=== PATIENT | male | born 1955 | race Caucasian/White ===

== ENCOUNTER → 2023-07-06 | Outpatient (CLI) | payer OTHER, SELFPAY ==
--- NOTE | 2023-07-06 12:49 | ECHOD_ITS ---
Reason For Study: Non Isch CMP Procedure This was a 2D Doppler, Color Flow transthoracic echocardiogram. Exam performed in department. Left Ventricle Normal LV size. Left ventricular systolic function is lower limits of normal. Stage 1 diastolic dysfunction. There is borderline global hypokinesis of the left ventricle. Right Ventricle Normal RV size. Normal systolic function. Atria Normal left atrium. Normal right atrium. Mitral Valve Normal mitral valve. Tricuspid Valve Normal tricuspid valve. Aortic Valve Normal aortic valve. Trisinus/trileaflet aortic valve. Pulmonic Valve Normal pulmonic valve. Great Vessels Mildly dilated aortic root. The pulmonary artery is normal size. Inferior vena cava collapse with respiration. Pericardium/Pleural No pericardial effusion. MMode/2D Measurements & Calculations LVIDd: 5.5 cm IVSd: 1.1 cm Ao root diam: 3.9 cm LVIDs: 4.4 cm LVPWd: 0.99 cm LA dimension: 3.4 cm RVDd: 3.6 cm FS: 20.2 % LAV(MOD-bp): 51.2 ml LVAd ap4: 41.3 cm2 SV(MOD-sp4): 76.0 ml LAV(MOD-bp) Indexed: 27.2 ml/m2 LVLd ap4: 8.9 cm LAV(MOD-sp2): 56.1 ml EDV(MOD-sp4): 155.9 ml LAV(MOD-sp4): 43.4 ml EDV(sp4-el): 161.9 ml LVAs ap4: 26.4 cm2 LVLs ap4: 7.4 cm ESV(MOD-sp4): 79.8 ml ESV(sp4-el): 79.4 ml EF(MOD-sp4): 48.8 % EF(sp4-el): 51.0 % SV(sp4-el): 82.5 ml LA A4 area: 18.2 cm2 RA A4 area: 18.4 cm2 TAPSE: 2.0 cm Time Measurements MV dec time: 0.17 sec Doppler Measurements & Calculations MV E max lópez: 38.1 cm/sec Lat Peak E' López: 14.3 cm/sec Med Peak E' López: 8.0 cm/sec MV A max lópez: 83.0 cm/sec E/E' lat: 2.7 E/E' med: 4.8 MV E/A: 0.46 MV V2 max: 80.0 cm/sec MV P1/2t max lópez: 45.6 cm/sec Ao V2 max: 168.2 cm/sec MV max P.6 mmHg MV P1/2t: 66.3 msec Ao max P.3 mmHg MV V2 mean: 47.3 cm/sec MV dec slope: 201.6 cm/sec2 Ao V2 mean: 121.4 cm/sec MV mean P.1 mmHg Ao mean P.7 mmHg MV V2 VTI: 16.5 cm MVA(P1/2t): 3.3 cm2 Ao V2 VTI: 29.3 cm AV (velocity ratio): 0.59 LV V1 max: 92.6 cm/sec PA V2 max: 94.4 cm/sec LV V1 max P.4 mmHg LV V1 mean P.1 mmHg LV V1 mean: 69.6 cm/sec LV V1 VTI: 17.3 cm ECHO/Echo Complete Interpretation Summary Normal LV size. Left ventricular systolic function is lower limits of normal. There is borderline global hypokinesis of the left ventricle. Stage 1 diastolic dysfunction. Mildly dilated aortic root. Ordering Physician: Kamran Caputo Referring Physician: Kamran Caputo Performed By: Catracho Arevalo RCS
--- OUTSIDE RECORDS SUMMARY | 2023-07-06 13:15 | XMS RPT_ITS | CCD ---
Author Name Unknown Address [address] [place] [address] Organization [facility] Care Team Providers [employer] Name Role Phone SARY FERRO MD Referring Unavailable SARY FERRO MD Consulting Unavailable RENNY CARRENO DO Admitting Unavailable RENNY CARRENO DO Primary Care Unavailable RENNY CARRENO DO Attending Unavailable PROVIDER, UNKNOWN Consulting Unavailable PROVIDER, UNKNOWN Consulting Unavailable PROVIDER, UNKNOWN Consulting Unavailable SARY FERRO MD Consulting Unavailable BENEHOWARD TONNY Admitting Unavailable BENETONNY LAWRENCE Primary Care Unavailable TONNY JOHNSTON Attending Unavailable PROVIDER, UNKNOWN Consulting Unavailable PROVIDER, UNKNOWN Consulting Unavailable PROVIDER, UNKNOWN Consulting Unavailable SARY FERRO MD Consulting Unavailable DHARMESH VARGAS MD Admitting Unavailable DHARMESH VARGAS MD Primary Care Unavailable DHARMESH VARGAS MD Attending Unavailable PROVIDER, UNKNOWN Consulting Unavailable PROVIDER, UNKNOWN Consulting Unavailable PROVIDER, UNKNOWN Consulting Unavailable SARY FERRO MD Consulting Unavailable SARY FERRO MD Referring Unavailable CHRISTOPHER OVIEDO DO Admitting Unavailable CHRISTOPHER OVIEDO DO Primary Care Unavailable CHRISTOPHER OVIEDO DO Attending Unavailable PROVIDER, UNKNOWN Consulting Unavailable PROVIDER, UNKNOWN Consulting Unavailable PROVIDER, UNKNOWN Consulting Unavailable SARY FERRO MD Referring Unavailable SARY FERRO MD Consulting Unavailable TAY LOPEZ Admitting Unavailable TAY LOPEZ Primary Care Unavailable TAY LOPEZ Attending Unavailable PROVIDER, UNKNOWN Consulting Unavailable PROVIDER, UNKNOWN Consulting Unavailable PROVIDER, UNKNOWN Consulting Unavailable Problems Problem Classification Problem Date Documented Da te Episodic/Chronic Headache; including migraine (3 sources) Headache; including migraine; Translations: [Headache, unspecified] Onset: 05-08-2022 Results Test Name Value Interpretation Reference Range Facil ity Encounters Encounter Date Encounter Type Care Provider Facility Start: 02-14-2023 End: 02-14-2023 [facility]: [facility]-16-[facility]22 End: 05-16-2022 Emergency department patient visit SARY [facility] Start: 05-09-2022 End: 05-09-2022 ambulatory ANTHONYWHIT BERMUDEZ [facility] Start: 05-08-2022 End: 05-08-2022 ambulatory SARY [facility] Start: 03-12-2022 End: 03-12-2022 Emergency department patient visit ANTHONYWHIT BERMUDEZ [facility] Payers Date Payer Category Payer Unknown [id number] [id number] 1955 Unknown [id number] [id number] 1955 Unknown [id number] [id number] [id number] 1955 Unknown [id number] 2.16.84 [id number] 1955 Unknown [id number] [id number] Unknown [id number] Summary Purpose Family History No Family History Records FoundNo Family History Records FoundNo Family History Records Found Advance Directives No Advanced Directives Records FoundNo Advanced Directives Records FoundNo Advanced Directives Records Found Additional Source Comments (unrecognized sect ion and content) No Status Records FoundNo Status Records FoundNo Status Records Found INFORMATION SOURCE (unrecogn ized section and content) DATE CREATED AUTHOR AUTHOR'S ORGANIZ ATION 10/26/2020 [facility]ly [facility], [facility] ([place]) DATE CREATED AUTHOR AUTHOR'S ORGANIZ ATION 02/16/2023 [facility] FOR RECORDS PERTAINING TO PATIENTS WHO ARE OR HAVE BEEN ENROLLED IN A CHEMICAL DEPENDENCY/SUBSTANCEABUSE PROGRAM, SOME INFORMATION MAY BE OMITTED. This clinical summary was aggregated from multiple sources. Caution should be exercised in using it in the provision of clinical care. This summary normalizes information from multiple sources, and as a consequence, information in this document may materially change the coding, format and clinical context of patient data. In addition, data may be omitted in some cases. CLINICAL DECISIONS SHOULD BE BASED ON THE PRIMARY CLINICAL RECORDS. [facility]. provides no warranty or guarantee of the accuracy or completeness of information in this document.
== END | disposition home or self-care (01) ==
PROVIDERS: PCP Internal Medicine; Referring Provider Internal Medicine Cardiovascular Disease; Visit Provider Internal Medicine Cardiovascular Disease
DX: I42.8 Other cardiomyopathies (principal)
CPT/HCPCS: 93306